=== PATIENT | male | born 1995 | race African-American/Black ===

== ENCOUNTER 2018-09-12 07:06 | Emergency (ER) | payer OTHER ==
[2018-09-12] MEDS ORDERED: IBUPROFEN 400 MG TAB ONE (07:40)
[2018-09-12] MEDS ORDERED: CEFTRIAXONE/SWI 1gm 1 GM/10 ML SYR ONE (08:20)
--- NOTE | 2018-09-12 08:54 | EDPHYS ---
Physician Documentation [facility] Name: Karl Enciso Age: 22 yrs Sex: Male : 1995 Arrival Date: 09/12/2018 Time: 07:10 Bed 19 Private MD: ED Physician Jerrell De La Torre HPI: 09/12 08:33 This 22 yrs old Black Male presents to ER via Law Enforcement with complaints of Hand gs Injury. 08:33 The patient or guardian reports injury. The complaints affect the MCP of left index gs finger. Onset: The symptoms/episode began/occurred acutely, just prior to arrival. Modifying factors: the symptoms are aggravated by movement. Associated signs and symptoms: Pertinent negatives: decreased sensation distally, fever. Severity of symptoms: At their worst the symptoms were moderate, in the emergency department the symptoms are unchanged. The patient has not experienced similar symptoms in the past. Historical: - Allergies: 07:15 No Known Allergies; em - Home Meds: 07:15 None [Active]; em - PMHx: 07:15 None; em - PSHx: 07:15 None; em - Immunization history:: Adult Immunizations up to date, Last tetanus immunization: up to date. - Social history:: Smoking status: Patient/guardian denies using tobacco. - Ebola Screening: : Patient negative for fever greater than or equal to 101.5 degrees Fahrenheit, and additional compatible Ebola Virus Disease symptoms Patient denies exposure to infectious person Patient denies travel to an Ebola-affected area in the 21 days before illness onset No symptoms or risks identified at this time. ROS: 08:33 All other systems are negative. gs Exam: 08:33 Head/Face: Normocephalic, atraumatic. Cardiovascular: Regular rate and rhythm with a gs normal S1 and S2. No gallops, murmurs, or rubs. Normal PMI, no JVD. No pulse deficits. Respiratory: Lungs have equal breath sounds bilaterally, clear to auscultation and percussion. No rales, rhonchi or wheezes noted. No increased work of breathing, no retractions or nasal flaring. Back: No spinal tenderness. No costovertebral tenderness. Full range of motion. Neuro: Awake and alert, GCS 15, oriented to person, place, time, and situation. Cranial nerves II-XII grossly intact. Motor strength 5/5 in all extremities. Sensory grossly intact. Cerebellar exam normal. Normal gait. 08:33 Constitutional: The patient appears alert, awake. 08:33 Musculoskeletal/extremity: Extremities: noted in the left hand: pain, swelling, tenderness, ROM: limited active range of motion due to pain, limited passive range of motion due to pain, Pulses: are normal with no appreciated deficits, Perfusion: the patient is normally perfused throughout, Sensation intact. 08:33 Skin: injury, laceration(s), the wound is approximately 0.1 cm(s), with a depth of 0.1 cm(s), of the MCP of left index finger. Vital Signs: 07:15 BP 122 / 60; Pulse 73; Resp 18; Temp 98.1(O); Pulse Ox 100% on R/A; Weight 80.74 kg; em Height 6 ft. 2 in. (187.96 cm); Pain 8/10; 08:20 BP 126 / 74; Pulse 64; Resp 19; Pulse Ox 100% on R/A; Pain 7/10; em 09:16 BP 126 / 78; Pulse 59; Resp 18; Pulse Ox 99% on R/A; em 10:01 BP 125 / 81; Pulse 65; Resp 18; Pulse Ox 99% on R/A; em 11:22 BP 128 / 71; Pulse 57; Resp 16; Pulse Ox 99% on R/A; Pain 4/10; em 07:15 Body Mass Index 22.85 (80.74 kg, 187.96 cm) em Procedures: 08:33 Splinting: Splint applied to MCP of left index finger using Orthoglass splint, applied gs by tech. Examined by me, post splint application: neurovascular intact, 2+ distal pulses palpable, brisk capillary refill noted, Patient tolerated well. MDM: 07:51 Patient medically screened. gs 08:33 Differential diagnosis: open fracture, closed fracture, contusion. Data reviewed: vital gs signs, nurses notes. Response to treatment: the patient's symptoms have mildly improved after treatment. 09/12 07:20 Order name: Hand Left 3 View XRAY; Complete Time: 09:35 gs 09/12 08:06 Order name: IV Saline Lock; Complete Time: 08:41 gs 09/12 08:06 Order name: Splint - Volar Wrist Splint; Complete Time: 08:44 gs Administered Medications: 07:33 Drug: Ibuprofen 800 mg Route: PO; em 08:41 Follow up: Response: No adverse reaction; Pain is decreased em 08:22 Drug: Rocephin - (cefTRIAXone) 1 grams Route: IVPB; Infused Over: 30 mins; Site: right ss antecubital; 09:14 Follow up: Response: No adverse reaction; IV Status: Completed infusion; IV Intake: 10mlem 09:12 Drug: Unasyn 3 grams Route: IVPB; Infused Over: 30 mins; Site: right antecubital; em 09:43 Follow up: Response: No adverse reaction; IV Status: Completed infusion; IV Intake: em 100ml 09:55 Drug: fentaNYL (PF) 50 mcg Route: IVP; Site: right antecubital; ss 10:40 Follow up: Response: No adverse reaction em Disposition: 09/12/18 08:53 Transfer ordered to [facility]. Diagnosis is Displaced fracture of neck of first metacarpal bone, left hand. - Reason for transfer: Higher level of care. - Accepting physician is [facility]. - Condition is Stable. - Problem is new. - Symptoms have improved. Signatures: Dispatcher [employer] EDPk Low, MILK POWDER GRINDER MILK POWDER GRINDER Lexus Severino RN RN ss Starr, Gregory, MD MD Corrections: (The following items were deleted from the chart) 11:25 08:53 09/12/2018 08:53 Transfer ordered to [facility]. Diagnosis is Displaced em fracture of neck of first metacarpal bone, left hand. Reason for transfer: Higher level of care. Accepting physician is [facility]. Condition is Stable. Problem is new. Symptoms have improved. gs
--- NOTE | 2018-09-12 08:54 | ER ---
Nurse's Notes [facility] Name: Karl Enciso Age: 22 yrs Sex: Male : 1995 Arrival Date: 09/12/2018 Time: 07:10 Bed 19 Private MD: Diagnosis: Displaced fracture of neck of first metacarpal bone, left hand Presentation: 09/12 07:11 Presenting complaint: Patient states: was walking up stairs and slipped, hand got em caught in between rail and heard pop yesterday around 1900, swelling noted to left hand, limited range on motion in fingers. Transition of care: patient was not received from another setting of care. Onset of symptoms was September 11, 2018. Risk Assessment: Do you want to hurt yourself or someone else? Patient reports no desire to harm self or others. Initial Sepsis Screen: Does the patient meet any 2 criteria? No. Patient's initial sepsis screen is negative. Does the patient have a suspected source of infection? No. Patient's initial sepsis screen is negative. Care prior to arrival: None. 07:11 Method Of Arrival: [employer] Enforcement: [place] [employer] em 07:12 Acuity: DIANE 4 ss Triage Assessment: 07:15 General: Appears in no apparent distress. comfortable, Behavior is calm, cooperative. em Pain: Complains of pain in left hand Pain currently is 8 out of 10 on a pain scale. Musculoskeletal: Range of motion: limited in MCP of left little finger, MCP of left ring finger, MCP of left middle finger and MCP of left index finger Swelling present in left hand. Injury Description:. Historical: - Allergies: 07:15 No Known Allergies; em - Home Meds: 07:15 None [Active]; em - PMHx: 07:15 None; em - PSHx: 07:15 None; em - Immunization history:: Adult Immunizations up to date, Last tetanus immunization: up to date. - Social history:: Smoking status: Patient/guardian denies using tobacco. - Ebola Screening: : Patient negative for fever greater than or equal to 101.5 degrees Fahrenheit, and additional compatible Ebola Virus Disease symptoms Patient denies exposure to infectious person Patient denies travel to an Ebola-affected area in the 21 days before illness onset No symptoms or risks identified at this time. Screenin:17 Abuse screen: Denies threats or abuse. Nutritional screening: No deficits noted. em Tuberculosis screening: No symptoms or risk factors identified. Fall Risk None identified. Assessment: 07:15 General: Appears in no apparent distress. comfortable, Behavior is calm, cooperative. em Pain: Complains of pain in left hand Pain currently is 8 out of 10 on a pain scale. Neuro: Level of Consciousness is awake, alert, obeys commands, Oriented to person, place, time, situation. Cardiovascular: Heart tones S1 S2 present Capillary refill < 3 seconds Patient's skin is warm and dry. Respiratory: Airway is patent Respiratory effort is even, unlabored, Respiratory pattern is regular, symmetrical. GI: Abdomen is flat. Derm: Skin is intact, is healthy with good turgor, Skin is pink, warm \T\ dry. small pinpoint laceration in left hand. Musculoskeletal: Capillary refill < 3 seconds, Range of motion: limited in MCP of left little finger, MCP of left ring finger, MCP of left middle finger and MCP of left index finger Swelling present in left hand Denies weakness in left hand numbness in, left hand. Injury Description: slip injury and became caught in the hand railing. 07:20 General: The previous assessment is accurate, two guards from [facility] are here ss with patient. . 07:30 Reassessment: Patient appears in no apparent distress at this time. request something em for pain, provider notified, new medication orders received. 08:50 Reassessment: report given to SHOSHANA Solis at [facility], pending transportation. em 09:45 Reassessment: Patient appears in no apparent distress at this time. Patient and/or em family updated on plan of care and expected duration. Pain level reassessed. report given to EMS via telephone with Luis A continuity coordinator. 09:52 Reassessment: reports pain is worse in hand, provider notified, new medication orders em received. 10:15 Reassessment: Patient appears in no apparent distress at this time. Patient and/or em family updated on plan of care and expected duration. Pain level reassessed. Patient is alert, oriented x 3, equal unlabored respirations, skin warm/dry/pink. rates pain 4/10. 11:23 Reassessment: report given to [facility]. em Vital Signs: 07:15 BP 122 / 60; Pulse 73; Resp 18; Temp 98.1(O); Pulse Ox 100% on R/A; Weight 80.74 kg; em Height 6 ft. 2 in. (187.96 cm); Pain 8/10; 08:20 BP 126 / 74; Pulse 64; Resp 19; Pulse Ox 100% on R/A; Pain 7/10; em 09:16 BP 126 / 78; Pulse 59; Resp 18; Pulse Ox 99% on R/A; em 10:01 BP 125 / 81; Pulse 65; Resp 18; Pulse Ox 99% on R/A; em 11:22 BP 128 / 71; Pulse 57; Resp 16; Pulse Ox 99% on R/A; Pain 4/10; em 07:15 Body Mass Index 22.85 (80.74 kg, 187.96 cm) em ED Course: 07:10 Patient arrived in ED. em 07:13 Jerrell De La Torre MD is Attending Physician. gs 07:15 Arm band placed on. em 07:16 Triage completed. ss 07:17 Patient has correct armband on for positive identification. Bed in low position. Call em light in reach. Adult w/ patient. correctional officers at bedside. Pulse ox on. NIBP on. 07:19 Pk Lopez LVN is Primary Nurse. em 08:01 X-ray completed. Portable x-ray completed in exam room. Patient tolerated procedure la2 well. 08:03 Hand Left 3 View XRAY In Process Unspecified. EDMS 08:20 Inserted saline lock: 20 gauge in right antecubital area, using aseptic technique. em 08:30 Wound care: to laceration chlorhexidine and normal saline to left hand. dh3 08:30 Dressings: non-adherent dressing x 1 left hand Tube gauze X 1; left hand. dh3 08:38 Orthoglass splint: Volar splint applied on left arm capillary refill less than 3 dh3 seconds. 11:21 No provider procedures requiring assistance completed. em 11:21 Patient transferred, IV remains in place. em Administered Medications: 07:33 Drug: Ibuprofen 800 mg Route: PO; em 08:41 Follow up: Response: No adverse reaction; Pain is decreased em 08:22 Drug: Rocephin - (cefTRIAXone) 1 grams Route: IVPB; Infused Over: 30 mins; Site: right ss antecubital; 09:14 Follow up: Response: No adverse reaction; IV Status: Completed infusion; IV Intake: 10mlem 09:12 Drug: Unasyn 3 grams Route: IVPB; Infused Over: 30 mins; Site: right antecubital; em 09:43 Follow up: Response: No adverse reaction; IV Status: Completed infusion; IV Intake: em 100ml 09:55 Drug: fentaNYL (PF) 50 mcg Route: IVP; Site: right antecubital; ss 10:40 Follow up: Response: No adverse reaction em Intake: 09:14 IV: 10ml; Total: 10ml. em 09:43 IV: 100ml; Total: 110ml. em Outcome: 08:53 ER care complete, transfer ordered by . 11:22 Transferred by ground EMS to [facility], Transfer form em completed. X-rays sent w/ patient. 11:22 Condition: good 11:22 Instructed on the need for transfer, Demonstrated understanding of instructions. 11:25 Patient left the ED. em Signatures: Dispatcher [employer] Pk Kramer, MICROPHONE OPERATOR MICROPHONE OPERATOR em Lexus oCrtez RN RN Pebbles Dixon 3 Jerrell De La Torre MD MD gs Ardoin, Leslie la2 Corrections: (The following items were deleted from the chart) 11:23 10:15 Reassessment: Patient appears in no apparent distress at this time. Patient em and/or family updated on plan of care and expected duration. Pain level reassessed. Patient is alert, oriented x 3, equal unlabored respirations, skin warm/dry/pink. em
[2018-09-12] MEDS ORDERED: AMPICILLIN/SULBACT 3 GM in NA CHLORIDE 0.9% 100 ML IVPB ONE (09:00)
--- NOTE | 2018-09-12 09:25 | RAD REPORT ---
EXAM DESCRIPTION: RAD -Hand Left 3 View - 09/12/2018 8:02 am CLINICAL HISTORY: Left hand pain status post injury FINDINGS: Comminuted mildly displaced fracture involves the second metacarpal head and neck. No disl ocation seen Old fracture involves the fifth metacarpal
[2018-09-12] MEDS ORDERED: FENTANYL CITR 100 MCG/2 ML ONE (10:01)
== END 2018-09-12 11:25 | disposition short-term general hospital (02) ==
LOC: ER 07:06
PROC: 2W3KX1Z Immobilization of Left Finger using Splint (ICD-10-PCS; principal; 2018-09-12)
DX: S62.252A Displaced fracture of neck of first metacarpal bone, left hand, initial encounter for closed fracture (principal); X58.XXXA Exposure to other specified factors, initial encounter; Y93.9 Activity, unspecified; Y92.9 Unspecified place or not applicable
CPT/HCPCS: 96365; 96375; 99285; J0295; J0696; J3010